=== PATIENT | male | born 1950 | race Two or more races ===

== ENCOUNTER 2016-10-12 11:17 | Emergency (ER) | payer MEDICAID ==
[~2016-10-12] VITALS: Ht 162.6 cm; Wt 63.5 kg
[2016-10-12 11:35] VITALS: BP 106/64
--- NOTE | 2016-10-12 11:35 | Emergency Room Report ---
History of Present Illness General Chief Complaint: Chest Pain Source: Patient Present Illness HPI Patient presents with complaints of left upper chest pain Ongoing for the past several days Feels that the pain comes on lasts for several minutes and slowly resolved by itself This has happened several times Currently reports being chest pain free Denies any vomiting with this denies any change with position or exertion patient last had a stress test about 5 years ago which was normal Allergies: Coded Allergies: SULFA (SULFONAMIDE ANTIBIOTICS) (Verified Allergy, Unknown, 10/12/16) Uncoded Allergies: SULFA (Allergy, Unknown, 10/12/16) Patient History Past Medical History: see triage record Pertinent Family History: none Reviewed Nursing Documentation: PMH: Agreed, PSxH: Agreed Nursing Documentation-PMH Past Medical History: No History, Except For Hx Cancer: Yes - Prostate Review of Systems All Other Systems: negative except mentioned in HPI Physical Exam Vital Signs Date Time Temp Pulse Resp B/P Pulse Ox O2 Delivery O2 Flow Rate FiO2 10/12/16 11:27 97.5 69 16 107/71 97 Room Air Sp02 EP Interpretation: reviewed, normal General Appearance: well appearing, no apparent distress Head: normocephalic, atraumatic Eyes: bilateral eye EOMI, bilateral eye PERRL ENT: hearing grossly normal, normal pharynx, TMs + canals normal, uvula midline Neck: full range of motion, supple, no meningismus, no bony tend Respiratory: lungs clear, normal breath sounds, no rhonchi, no respiratory distress, no retraction, no accessory muscle use Cardiovascular #1: normal peripheral pulses, regular rate, rhythm, no edema, no gallop, no JVD, no murmur Gastrointestinal: normal bowel sounds, non tender, soft, no mass, no organomegaly, non-distended, no guarding, no hernia, no pulsatile mass, no rebound Genitourinary: no CVA tenderness Musculoskeletal: normal inspection Neurologic: oriented x3, responsive, professor of surgery III-XII nml as tested, motor strength/ tone normal, sensory intact Psychiatric: mood/affect normal Skin: normal color, no rash, warm/dry, palpation normal Lymphatic: normal inspection, no adenopathy Medical Decision Making Diagnostic Impression: Primary Impression: ACS (acute coronary syndrome) ER Course Patient is a fairly complex patient with multiple differential to consideration including but not limited to cardiac cardiopulmonary and vascular emergencies Patient's EKG and initial blood work are appropriate patient remained pain-free there is some description in line with unstable angina The patient is stable for further inpatient care Labs Test 10/12/16 11:30 White Blood Count 3.9 K/UL (4.8-10.8) Red Blood Count 4.53 M/UL (4.70-6.10) Hemoglobin 14.6 G/DL (14.2-18.0) Hematocrit 43.8 % (42.0-52.0) Mean Corpuscular Volume 97 FL (80-99) Mean Corpuscular Hemoglobin 32.3 PG (27.0-31.0) Mean Corpuscular Hemoglobin Concent 33.4 G/DL (32.0-36.0) Red Cell Distribution Width 11.7 % (11.6-14.8) Platelet Count 170 K/UL (150-450) Mean Platelet Volume 8.2 FL (6.5-10.1) Neutrophils (%) (Auto) 58.3 % (45.0-75.0) Lymphocytes (%) (Auto) 29.4 % (20.0-45.0) Monocytes (%) (Auto) 9.9 % (1.0-10.0) Eosinophils (%) (Auto) 0.9 % (0.0-3.0) Basophils (%) (Auto) 1.5 % (0.0-2.0) Prothrombin Time 11.6 SEC (9.30-11.50) Prothromb Time International Ratio 1.1 (0.9-1.1) Activated Partial Thromboplast Time 27 SEC (23-33) Sodium Level 139 mEQ/L (135-145) Potassium Level 4.1 mEQ/L (3.4-4.9) Chloride Level 99 mEQ/L (98-107) Carbon Dioxide Level 24 mEQ/L (20-30) Anion Gap 16 (5-15) Blood Urea Nitrogen 13 mg/dL (7-23) Creatinine 0.9 mg/dL (0.7-1.2) Estimat Glomerular Filtration Rate > 60 mL/min (>60) Glucose Level 96 mg/dL (74-106) Calcium Level 9.2 mg/dL (8.6-10.2) Total Bilirubin 0.3 mg/dL (0.0-1.2) Aspartate Amino Transf (AST/SGOT) 18 U/L (5-40) Alanine Aminotransferase (ALT/SGPT) 17 U/L (3-41) Alkaline Phosphatase 56 U/L (40-129) Total Creatine Kinase 96 U/L (38-174) Creatine Kinase MB 4.0 ng/mL (< 6.7) Creatine Kinase MB Relative Index 4.1 Troponin I < 0.30 ng/mL (<=0.30) Pro-B-Type Natriuretic Peptide 16 pg/mL (0-125) Total Protein 7.2 g/dL (6.6-8.7) Albumin 4.2 g/dL (3.5-5.2) Globulin 3.0 g/dL Albumin/Globulin Ratio 1.4 (1.0-2.7) Lipase 27 U/L (< 60) Urine Opiates Screen Negative (NEGATIVE) Urine Barbiturates Screen Negative (NEGATIVE) Phencyclidine (PCP) Screen Negative (NEGATIVE) Urine Amphetamines Screen Negative (NEGATIVE) Urine Benzodiazepines Screen Negative (NEGATIVE) Urine Cocaine Screen Negative (NEGATIVE) Urine Marijuana (THC) Screen Negative (NEGATIVE) EKG Diagnostic Results Rate: normal Rhythm: NSR ST Segments: no acute changes Rhythm Strip Diag. Results EP Interpretation: yes Rate: 88 Rhythm: NSR, no PVC's, no ectopy Chest X-Ray Diagnostic Results EP Interpretation: Yes Findings: no consolidation, no effusion, no pneumothorax Number of Views: 1 Last Vital Signs Date Time Temp Pulse Resp B/P Pulse Ox O2 Delivery O2 Flow Rate FiO2 10/12/16 11:27 97.5 69 16 107/71 97 Room Air Status: improved [facility] Condition: Stable LILIBETH ARRIETA D.O. Oct 12, 2016 11:35
[2016-10-12] MEDS ORDERED: NKM (12:02)
[2016-10-12 12:15] LABS: BASOPHILS % (AUTO) 1.5 % (0.0-2.0); EOSINOPHILS % (AUTO) 0.9 % (0.0-3.0); LYMPHOCYTES % (AUTO) 29.4 % (20.0-45.0); MEAN CORPUSCULAR HEMOGLOBIN 32.3 PG (27.0-31.0); MEAN CORPUSCULAR HGB CONC 33.4 G/DL (32.0-36.0); MEAN CORPUSCULAR VOLUME 97 FL (80-99); MEAN PLATELET VOLUME 8.2 FL (6.5-10.1); MONOCYTES % (AUTO) 9.9 % (1.0-10.0); NEUTROPHILS % (AUTO) 58.3 % (45.0-75.0); PLATELET COUNT 170 K/UL (150-450); RED BLOOD COUNT 4.53 M/UL (4.70-6.10); RED CELL DISTRIBUTION WIDTH 11.7 % (11.6-14.8); WHITE BLOOD COUNT 3.9 K/UL (4.8-10.8)
[2016-10-12 12:20] LABS: TROPONIN I < 0.30 ng/mL (<=0.30)
[2016-10-12 12:23] LABS: ALANINE AMINOTRANSFERASE 17 U/L (3-41); ALBUMIN/GLOBULIN RATIO 1.4 (1.0-2.7); ANION GAP 16 (5-15); ASPARTATE AMINO TRANSFERASE 18 U/L (5-40); CALCIUM 9.2 mg/dL (8.6-10.2); CARBON DIOXIDE 24 mEQ/L (20-30); CHLORIDE 99 mEQ/L (98-107); CREATININE 0.9 mg/dL (0.7-1.2); GLOMERULAR FILTRATION RATE > 60 mL/min (>60); HEMOLYSIS 7; LIPASE 27 U/L (< 60); POTASSIUM 4.1 mEQ/L (3.4-4.9); SODIUM 139 mEQ/L (135-145); TOTAL PROTEIN 7.2 g/dL (6.6-8.7)
[2016-10-12 12:32] LABS: INR 1.1 (0.9-1.1); PROTHROMBIN TIME 11.6 SEC (9.30-11.50)
[2016-10-12 13:30] VITALS: BP 106/77
--- NOTE | 2016-10-12 15:18 | Diagnostic Imaging Report ---
Indication: Chest pains Technique: One view of the chest Comparison: none Findings: Lungs and pleural spaces are clear. Heart size is normal. Impression: No acute process
[2016-10-12 15:33] LABS: TROPONIN I < 0.30 ng/mL (<=0.30)
[2016-10-12 15:47] VITALS: BP 110/67
[2016-10-12 15:48] VITALS: BP 106/77
--- NOTE | 2016-10-17 16:22 | Cardiology Report ---
APPROVED REPORT EKG Measurement Heart [id number] Normal sinus rhythm with sinus arrhythmia Normal ECG
== END 2016-10-12 15:52 | disposition left against medical advice (07) ==
LOC: EMR 12:10
DX: I24.9 Acute ischemic heart disease, unspecified (principal); Z88.2 Allergy status to sulfonamides; Z85.46 Personal history of malignant neoplasm of prostate
CPT/HCPCS: 36415; 71010; 80053; 80300; 82550; 82553; 83690; 83880; 84484; 85025; 85610; 85730; 93005